=== PATIENT | male | born 2000 | race Caucasian/White ===

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

== ENCOUNTER 2019-10-17 21:42 | Emergency (ER) | payer MEDICAID ==
[~2019-10-17] VITALS: Ht 175.3 cm; Wt 114.0 kg
[2019-10-17 21:45] VITALS: BP 131/74
[2019-10-17] MEDS ORDERED: DIAZEPAM 5 MG TABLET PO ONE (22:00)
[2019-10-17] MEDS ORDERED: KETOROLAC 30 MG/1 ML IM ONE (22:00)
[2019-10-17] MEDS ORDERED: DIAZEPAM 5 MG TABLET ONE (22:00)
[2019-10-17] MEDS ORDERED: KETOROLAC 60 MG/2 ML ONE (22:01)
--- NOTE | 2019-10-17 22:08 | NUR ---
PT MEDICATED PER MAR FOR PAIN. PT STS HAS A RIDE HOME
== END 2019-10-17 22:39 | disposition home or self-care (01) ==
LOC: ED 22:00
DX: G89.29 Other chronic pain (principal); M54.5 Low back pain
CPT/HCPCS: 96372; 99283; J1885